=== PATIENT | male | born 1990 | race Hispanic/Latino ===

== ENCOUNTER 2021-01-17 12:51 | Emergency (ER) | payer OTHER ==
[~2021-01-17] VITALS: Ht 167.6 cm; Wt 75.0 kg
[2021-01-17] MEDS ORDERED: CEPHALEXIN500 M1 PO (14:20)
[2021-01-17 14:30] VITALS: BP 112/62
== END 2021-01-17 14:30 | disposition home or self-care (01) | DRG 605 ==
LOC: ED 12:51
PROC: 0HQGXZZ Repair Left Hand Skin, External Approach (ICD-10-PCS; principal; 2021-01-17)
DX: S61.211A Laceration without foreign body of left index finger without damage to nail, initial encounter (principal); W26.0XXA Contact with knife, initial encounter; Y93.H2 Activity, gardening and landscaping; Y92.89 Other specified places as the place of occurrence of the external cause; Y99.0 Civilian activity done for income or pay